=== PATIENT | female | born 1955 | race Caucasian/White ===

== ENCOUNTER → 2017-05-05 | Outpatient (CLI) | payer OTHER ==
--- NOTE | ~2017-05-05 | MR165 ---
[facility] A Service of [facility] RADIOLOGY TEXT RESULTS PATIENT: STANLEY MORALES LOCATION: [facility] : 51 UNIT #: [id number] AGE: [address]: Sj Begum MD SEX: F ORDER DR: [id number] [place] [id number] O MR#: [id number] Acc #: [id number] NAME: STANLEY MORALES : 1955 SEX: F STUDY DATE/TIME: 05/05/2017 11:24 UNIT: [facility] ROOM: STUDY DESCRIPTION: MR Shoulder Wo Contrast Rt Attending Physician: Brayan Begum M.D. Referring Physician: Brayan Begum M.D. Ordering Physician: Brayan Begum M.D. Primary Care Physician: Pilar Angelo M.D. MRI CENTER REPORT This report is preliminary unless electronic signature is present. EXAM Right shoulder MRI without contrast 05/05/2017 HISTORY 62-year-old female with right shoulder pain for 6 months. Decreased range of motion. No specific injury. No prior right shoulder surgery. COMPARISON Right shoulder x-rays 03/22/2017 TECHNIQUE Routine unenhanced multiplanar, multisequence high field MR imaging of the right shoulder was performed. FINDINGS There is moderate supraspinatus and infraspinatus tendinopathy. There is some partial thickness bursal surface fraying of the anterior insertional supraspinatus tendon. However, this involves less than 25% of the tendon thickness. Teres minor and subscapularis tendons are intact. Long biceps tendon is intact and well positioned in the bicipital groove. No evidence of a labral tear. Glenohumeral articular cartilage is intact. No glenohumeral effusion. Acromioclavicular joint appears within expected limits. Mild lateral downsloping of the acromion. There is mild inflammation of the subacromial/subdeltoid bursa. No subacromial spur formation. Bone marrow signal is within expected limits. Visualized musculature is unremarkable. IMPRESSION [facility] A Service of [facility] RADIOLOGY TEXT RESULTS PATIENT: STAN[id number] [birth year] UNIT #: [id number] AGE: [address]: Sj Begum MD SEX: F ORDER DR: 1. Moderate supraspinatus and infraspinatus tendinopathy with partial-thickness bursal surface fraying of the anterior/central insertional supraspinatus tendon. This involves less than 25% of the tendon thickness. 2. No significant labral pathology. 3. Mild lateral downsloping of the acromion. 4. Mild inflammation subacromial/subdeltoid bursa. Dictated by... Blaise Klein M.D. THIS IS AN ELECTRONICALLY VERIFIED REPORT Blaise Klein M.D. at 05/06/2017 1:49 PM Arsenio TD: 05/06/2017 12:55 JOB #: [id number] MRI [facility]ENTER REPORT Page 1 of 1
== END | disposition home or self-care (01) ==
LOC: SMRI 04-29 10:15
DX: M25.511 Pain in right shoulder (principal); M75.81 Other shoulder lesions, right shoulder; M75.51 Bursitis of right shoulder
CPT/HCPCS: 73221